=== PATIENT | female | born 1990 | race American Indian/Alaskan Native ===

== ENCOUNTER 2017-06-03 00:35 | Inpatient (IN) | payer OTHER ==
[2017-06-03] MEDS ORDERED: LACTATED RINGERS 1,000 ML ONE (01:52)
[2017-06-03] MEDS ORDERED: PITOCin/NS 20 UNIT/1000ML DRIP 20,000 MILLIUNITS/1,000 ML BAG IV ONE (02:11)
[2017-06-03] MEDS ORDERED: XYLOCAINE 2% INFILTRATI ONE ×2 (02:13→02:21)
[2017-06-03] MEDS ORDERED: STADOL IV PRN (02:21)
[2017-06-03] MEDS ORDERED: BRETHINE SUB-Q PRN (02:21)
[2017-06-03] MEDS ORDERED: MINERAL OIL PO PRN (02:21)
[2017-06-03] MEDS ORDERED: BRETHINE IVP PRN (02:21)
[2017-06-03] MEDS ORDERED: ePHEDrine SULFATE IV PRN (02:21)
[2017-06-03] MEDS ORDERED: SUBLIMAZE IV PRN (02:21)
[2017-06-03] MEDS ORDERED: PHENERGAN PO PRN (02:27)
[2017-06-03] MEDS ORDERED: DULCOLAX PR PRN (02:27)
[2017-06-03] MEDS ORDERED: TUCKS PAD TP PRN (02:27)
[2017-06-03] MEDS ORDERED: BENADRYL PO PRN (02:27)
[2017-06-03] MEDS ORDERED: PHENERGAN PR PRN (02:27)
[2017-06-03] MEDS ORDERED: TYLENOL PO PRN (02:27)
[2017-06-03] MEDS ORDERED: LANSINOH TP PRN (02:27)
[2017-06-03] MEDS ORDERED: MILK OF MAGNESIA PO PRN (02:27)
[2017-06-03] MEDS ORDERED: ZOFRAN IV PRN (02:27)
--- NOTE | 2017-06-03 02:35 | History and Physical Report ---
History of Present Illness Date of examination: 06/03/17 Date of admission: 06/03/17 00:41 Chief complaint: Labor History of present illness: Pt is a 27yo BF EDC 05/30/17; EGA 40 4/7 weeks presents to L&D complaining of RUC's q 2-4 mins. She received care at [facility] since 14 weeks and course has been unremarkable. records are available and GBS is Negative. Past History Past Medical History: no pertinent history Past Surgical History: no surgical history [employer] History: abnormal PAP smear Family/Genetic History: none Social history: no significant social history, - Obstetrical History Expected Date of Delivery: 05/30/17 Actual Gestation: 40 Week(s) 4 Day(s) : 1 Medications and Allergies Allergies Allergy/AdvReac Type Severity Reaction Status Date / Time No Known Allergies Allergy Verified 06/03/17 01:42 Home Medications Medication Instructions Recorded Confirmed Last Taken Type No Known Home Medications [No 06/03/17 06/03/17 Unknown History Reported Home Medications] Active Meds: Active Medications Acetaminophen (Tylenol) 650 mg PO Q4H PRN PRN Reason: Pain MILD(1-3)/Fever >100.5/OLEARY Acetaminophen/Hydrocodone Bitart ([place] 5/325) 2 each PO Q6H PRN PRN Reason: Pain, Moderate (4-6) Bisacodyl (Dulcolax) 10 mg AR BID PRN PRN Reason: Constipation Butorphanol Tartrate (Stadol) 2 mg IV Q2H PRN PRN Reason: Pain , Severe (7-10) Diphenhydramine HCl (Benadryl) 25 mg PO Q6H PRN PRN Reason: Itching Diphtheria/Tetanus/Acell Pertussis (Boostrix) 0.5 ml IM .ONCE ONE Stop: 06/04/17 02:28 Ephedrine Sulfate (Ephedrine Sulfate) 10 mg IV Q2M PRN PRN Reason: Hypotension Fentanyl (Sublimaze) 100 mcg IV Q2H PRN PRN Reason: Labor Pain Ferrous Sulfate (Feosol) 325 mg PO BID MALLY Lactated Ringer's (Lactated Ringers) 1,000 mls @ 125 mls/hr IV DIRECT MALLY Oxytocin/Sodium Chloride (Pitocin/Ns 20 Unit/1000ml Drip) 20 units in 1,000 mls @ 125 mls/hr IV DIRECT MALLY Oxytocin/Sodium Chloride (Pitocin/Ns 30 Unit/500ml) 30 units in 500 mls @ 1 mls /hr IV TITR MALLY; 1 MILLIUNITS/MIN PRN Reason: Protocol Oxytocin/Sodium Chloride (Pitocin/Ns 20 Unit/1000ml Drip) 20 units in 1,000 mls @ 250 mls/hr IV DIRECT MALLY Ibuprofen (Motrin) 600 mg PO Q6H MALLY Lidocaine (Xylocaine 2%) 20 ml INFILTRATI ONCE ONE Stop: 06/03/17 02:22 Magnesium Hydroxide (Milk Of Magnesia) 30 ml PO HS PRN PRN Reason: Constipation Measles/Mumps/Rubella Vaccine Live (M-M-R Ii Vaccine) 0.5 ml SUB-Q .ONCE ONE Stop: 06/04/17 02:28 Mineral Oil (Mineral Oil) 30 ml PO QHS PRN PRN Reason: Constipation Multi-Ingredient Ointment (Lansinoh) 1 applic TP PRN PRN PRN Reason: Sore Nipples Multivitamins/Iron/Calcium ( Vitamin) 1 each PO QDAY MALLY Ondansetron HCl (Zofran) 4 mg IV Q8H PRN PRN Reason: Nausea And Vomiting Promethazine HCl (Phenergan) 25 mg AR Q6H PRN PRN Reason: Nausea And Vomiting Promethazine HCl (Phenergan) 25 mg PO Q6H PRN PRN Reason: Nausea And Vomiting Sodium Chloride (Sodium Chloride Flush Syringe 10 Ml) 10 ml IV PRN NR Terbutaline Sulfate (Brethine) 0.25 mg SUB-Q ONCE PRN PRN Reason: Hyperstimulation/Hypertonicity Terbutaline Sulfate (Brethine) 0.25 mg IVP ONCE PRN PRN Reason: Hyperstimulation/Hypertonicity Witch Stephanie/Glycerin (Tucks Pad) 1 each TP PRN PRN PRN Reason: Hemorrhoid/cleansing/soothing Review of Systems All systems: negative - Vital Signs Vital signs: Vital Signs Temp Pulse Resp BP 98.4 F 75 20 121/73 06/03/17 00:46 06/03/17 00:46 06/03/17 00:46 06/03/17 00:46 Temp Pulse Resp BP Pulse Ox 98.4 F 75 20 133/76 100 06/03/17 00:46 06/03/17 02:31 06/03/17 00:46 06/03/17 02:27 06/03/17 02:31 - Physical Exam Breasts: Positive: deferred Cardiovascular: Regular rate Lungs: Positive: Clear to auscultation Abdomen: Positive: normal appearance Genitourinary (Female): Positive: other (female circumcision) Vagina: Positive: normal moisture Uterus: Positive: enlarged Extremities: Positive: normal - Obstetrical FHR: category 1 Uterine Contraction Monitor Mode: External Cervical Dilatation: 5 Cervical Effacement Percentage: 100 station: 0 Uterine Contraction Pattern: Regular Uterine Tone Measurement Phase: Contraction Uterine Contraction Intensity: Strong/Firm Results All other labs normal. Assessment and Plan - Patient Problems (1) 40 weeks gestation of Onset Date: 06/03/17 Current Visit: Yes Status: Acute Plan to address problem: A: IUP @ 40 4/7 weeks in labor Meconium fluid P: Admit to L&D for expectant vaginal delivery
--- NOTE | 2017-06-03 02:39 | Procedure Note ---
OB Delivery Note - Delivery Date of Delivery: 06/03/17 Surgeon: ELIZABETH CLAYTON Estimated blood loss: 100cc - Vaginal Delivery presentation: vertex Delivery position: OA Intrapartum events: meconium Delivery induction: none Delivery augmentation: rupture of membranes Delivery monitor: external FHT, external uterine Route of delivery: Delivery placenta: spontaneous Episiotomy: none Delivery laceration: 1st degree (left labial and perineal) Delivery repair: vicryl Anesthesia: local Delivery comments: delivered OA and placed on Mom's chest for [id number] bonding and delayed cord clamping. RT in attendance. - Infant A at 1 minute: 8 at 5 minutes: 9 Gender: Male (3006gms)
[2017-06-03] MEDS ORDERED: PITOCin/NS 20 UNIT/1000ML DRIP 20 UNITS/1,000 ML BAG IV SCH ×2 (03:00)
[2017-06-03] MEDS ORDERED: SODIUM CHLORIDE FLUSH SYRINGE 10 ML IV PRN (03:00)
[2017-06-03] MEDS ORDERED: PITOCin/NS 30 UNIT/500ML 30 UNITS/500 ML BAG IV SCH (03:00)
[2017-06-03] MEDS ORDERED: LACTATED RINGERS 1,000 ML IV SCH (03:00)
[2017-06-03] MEDS: NORCO 5/325 PO PRN ×2 (03:03→15:16)
[2017-06-03 03:23] LABS: Hematocrit 35.6 % (30.3-42.9); Hemoglobin 12.1 gm/dl (10.1-14.3); Mean Corpuscular HGB Conc 34 % (30-34); Mean Corpuscular Hemoglobin 32 pg (28-32); Mean Corpuscular Volume 96 fl (79-97); Platelet Count 139 K/mm3 (140-440); Red Blood Count 3.73 M/mm3 (3.65-5.03)
[2017-06-03] MEDS: PRENATAL VITAMIN PO SCH ×2 (15:20→15:23)
[2017-06-03] MEDS: FEOSOL PO SCH ×2 (15:20→21:38)
[2017-06-03] MEDS: MOTRIN PO SCH (21:36)
[2017-06-04] MEDS ORDERED: M-M-R II VACCINE SUB-Q ONE (02:27)
[2017-06-04] MEDS: MOTRIN PO SCH ×4 (03:05→21:00)
[2017-06-04] MEDS ORDERED: BOOSTRIX IM ONE (06:00)
[2017-06-04] MEDS: FEOSOL PO SCH ×2 (10:37→22:00)
[2017-06-04] MEDS: PRENATAL VITAMIN PO SCH (10:38)
[2017-06-04] MEDS ORDERED: Fluarix Quad 2017-2018(36 MOS+ IM ONE (12:00)
--- NOTE | 2017-06-04 15:02 | Progress Note ---
Assessment and Plan PPD# 1 s/p -Doing well P: -Continue routine care -Anticipate discharge in 24-48 hours - Patient Problems (1) (normal spontaneous vaginal delivery) Current Visit: Yes Status: Acute Subjective - Subjective Date of service: 06/04/17 Principal diagnosis: PPD#1 Interval history: Patient seen and examined, stable doing well Patient reports: appetite normal, voiding normally, pain well controlled, ambulating normally, no dizzy ambulation, no nauseated [place]: doing well Objective - Vital Signs Latest vital signs: Vital Signs Temp Pulse Resp BP Pulse Ox 06/04/17 03:05 16 06/03/17 23:44 98.5 F 71 18 102/60 98 06/03/17 21:36 16 06/03/17 16:19 97.8 F 18 89/46 Intake and Output 06/03/17 06/04/17 06/04/17 23:59 07:59 15:59 Intake Total 362 480 Balance 362 480 Intake: Oral 360 480 Tube Feeding 2 Other: Total, Intake Amount 362 480 # Voids Void 3 - Exam Abdomen: Present: normal appearance, soft. Absent: distention, tenderness, guarding, rigidity Uterus: Present: firm, fundal height below umbilicus Extremities: Present: normal
--- NOTE | 2017-06-04 15:04 | Discharge Summary ---
Providers - Providers Date of Admission: 06/03/17 00:41 Date of discharge: 06/05/17 Attending physician: ELIZABETH CLAYTON Primary care physician: ELIZABETH CLAYTON Hospitalization Reason for admission: active labor, IUP at term Delivery: Episiotomy: none Laceration: 1st degree Other procedures: none complications: none Discharge diagnosis: IUP at term delivered [place] baby: male Hospital course: Uncomplicated hospital course Condition at discharge: Good Disposition: DC-01 TO HOME OR SELFCARE - Discharge Diagnoses (1) (normal spontaneous vaginal delivery) Status: Acute Plan - Provider Discharge Summary Activity: no sex for 6 weeks, no heavy lifting 4 weeks, no strenuous exercise Diet: routine Additional instructions: [] Smoking cessation referral if applicable(refer to patient education folder for contact #) [] Refer to [facility] Booklet Call your doctor immediately for: * Fever > 100.5 * Heavy vaginal bleeding ( >1 pad per hour) * Severe persistent headache * Shortness of breath * Reddened, hot, painful area to leg or breast * Drainage or odor from incision. * Keep incision clean and dry at all times and follow doctor's instructions regarding bathing/showering - Follow up plan Follow up: ELIZABETH CLAYTON MD [Primary Care Provider] - 6 Weeks
[2017-06-05] MEDS: MOTRIN PO SCH ×2 (03:00→15:16)
[2017-06-05 18:25] VITALS: BP 108/65
== END 2017-06-05 16:50 | disposition home or self-care (01) | DRG 775 ==
LOC: TRG 00:35 → LD 00:41 → OB 04:03
PROVIDERS: ADMIT Obstetrics & Gynecology; ATTEND Obstetrics & Gynecology
PROC: 10E0XZZ Delivery of Products of Conception, External Approach (ICD-10-PCS; principal; 2017-06-03)
PROC: 0HQ9XZZ Repair Perineum Skin, External Approach (ICD-10-PCS; 2017-06-03)
PROC: 3E0234Z Introduction of Serum, Toxoid and Vaccine into Muscle, Percutaneous Approach (ICD-10-PCS; 2017-06-04)
DX: O77.0 Labor and delivery complicated by meconium in amniotic fluid (principal); O70.0 First degree perineal laceration during delivery; Z3A.40 40 weeks gestation of pregnancy; Z37.0 Single live birth; Z23 Encounter for immunization
CPT/HCPCS: 36415; 85027; 86592; 86850; 86900; 86901; 90471; 90686; 90715; 99211; A6250; G0463; J2590; J7120

== ENCOUNTER 2017-07-11 14:58 | Emergency (ER) | payer MEDICAID, OTHER ==
[2017-07-11 15:52] LABS: Basophils % (Auto) 0.5 % (0.0-1.8); Eosinophils # (Auto) 0.2 K/mm3 (0.0-0.4); Hematocrit 36.6 % (30.3-42.9); Hemoglobin 12.2 gm/dl (10.1-14.3); Lymphocytes # (Auto) 2.4 K/mm3 (1.2-5.4); Lymphocytes % (Auto) 40.9 % (13.4-35.0); Mean Corpuscular HGB Conc 34 % (30-34); Mean Corpuscular Hemoglobin 32 pg (28-32); Mean Corpuscular Volume 96 fl (79-97); Monocytes # (Auto) 0.5 K/mm3 (0.0-0.8); Monocytes % (Auto) 8.4 % (0.0-7.3); Platelet Count 186 K/mm3 (140-440); Red Blood Count 3.82 M/mm3 (3.65-5.03); Red Cell Distribution Width 13.3 % (13.2-15.2)
[2017-07-11 16:02] LABS: BUN/Creatinine Ratio 15; Blood Urea Nitrogen 12 mg/dL (7-17); Calcium 8.8 mg/dL (8.4-10.2); Hemolysis Index 27
[2017-07-11 22:03] VITALS: BP 114/67
--- NOTE | 2017-07-11 22:44 | Emergency Department Report ---
HPI - General Chief Complaint: Vaginal Bleeding Time Seen by Provider: 07/11/17 21:41 - HPI HPI: The patient's 27-year-old female presents for evaluation of abdominal pain or vaginal bleeding. The patient reports 2 days of lower abdominal pain, crampy in quality, mild in severity, currently 2/10 in severity, exacerbated with movement, associated with heavy vaginal bleeding. She shares that her bleeding is heavier than typical menstrual periods and that this is her first period since vaginally delivering her child 2 months ago. The patient denies fever, chills, night sweats, diarrhea, blood in the stool, dark tarry stool, dysuria, hematuria, flank pain, genital discharge, inability to pass flatus. ED Past Medical Hx - Past Medical History Hx Hypertension: No Hx Congestive Heart Failure: No Hx Diabetes: No Hx Deep Vein Thrombosis: No Hx Renal Disease: No Hx Sickle Cell Disease: No Hx Seizures: No Hx Asthma: No Hx COPD: No Hx HIV: No - Social History Smoking Status: Never Smoker Substance Use Type: None - Medications Home Medications: Home Medications Medication Instructions Recorded Confirmed Last Taken Type Ibuprofen [Motrin 600 MG tab] 600 mg PO Q8H PRN #30 tablet 06/04/17 Unknown Rx Multivitamin with Iron 1 each PO DAILY #30 tablet 06/04/17 Unknown Rx [Multivitamins with Iron] HYDROcodone/APAP 5-325 [[place] 1 each PO Q6HR PRN #10 tablet 07/11/17 Unknown Rx 5/325] ED Review of Systems ROS: Stated complaint: HEMORRHAGE Other details as noted in HPI Constitutional: denies: fever ENT: denies: throat or neck pain Respiratory: denies: cough, shortness of breath Cardiovascular: denies: chest pain Endocrine: denies unexplained weight loss or gain Gastrointestinal: reoports abdominal pain, nausea Genitourinary: reports vaginal bleeding denies: dysuria Musculoskeletal: denies: leg swelling Skin: denies: rash Neurological: denies: headache Hematological/Lymphatic: denies: easy bleeding or easy bruising Psych: denies sadness or hopelessness Physical Exam - Physical Exam Vital Signs: Vital Signs 07/11/17 07/11/17 07/11/17 15:04 22:02 22:16 Temperature 98.2 F 98 F Pulse Rate 77 78 Respiratory 18 18 18 Rate Blood Pressure 111/66 Blood Pressure 114/67 [Left] O2 Sat by Pulse 99 100 Oximetry Physical Exam: General: well-nourished, well-developed, no acute distress Head: Normocephalic, atraumatic Eyes: normal sclera ENT: Mucous membranes are pink and moist Neck: trachea midline, neck supple, No neck stiffness, no cervical adenopathy Respiratory: Breath sounds equal bilaterally, no wheezing, rales, or rhonchi Cardio: S1 and S2 present, no murmurs, rubs, gallops, capillary refill is brisk Abdomen: Normoactive bowel sounds, soft abdomen, suprapubic tenderness to palpation, no rigidity, no guarding or rebound tenderness Chest WALL/Back: No tenderness to palpation of the chest wall, no CVA tenderness with percussion Musc: No pitting edema Skin: No rash Neuro: no facial drooping, normal speech Psych: Normal affect ED Course Vital Signs 07/11/17 07/11/17 07/11/17 15:04 22:02 22:16 Temperature 98.2 F 98 F Pulse Rate 77 78 Respiratory 18 18 18 Rate Blood Pressure 111/66 Blood Pressure 114/67 [Left] O2 Sat by Pulse 99 100 Oximetry ED Medical Decision Making - Lab Data Result diagrams: 07/11/17 15:25 07/11/17 15:25 - Medical Decision Making The patient was seen and examined by myself. The patient is placed on a cardiac cath lab radiology technologist and continuous pulse ox. On initial evaluation, the patient was found to be in no distress. Evaluation orders are placed. Lab results were non -concerning including WBC, hemoglobin, hematocrit, electrolytes, renal function , LFTs, lipase, negative test. The patient was reevaluated and reported that their symptoms were markedly improved. The patient was given a prescription for pain medicine. The patient is stable for discharge with outpatient follow-up. The patient is given follow-up and return instructions. The patient expressed understanding and agreed with the plan. The patient is discharged in stable condition. Critical care attestation.: If time is entered above; I have spent that time in minutes in the direct care of this critically ill patient, excluding procedure time. ED Disposition Clinical Impression: Abnormal vaginal bleeding, Acute suprapubic pain Menorrhagia Qualifiers: Menorrahagia type: with irregular cycle Qualified Code(s): N92.1 - Excessive and frequent menstruation with irregular cycle Disposition: - TO HOME OR SELFCARE Is pt being admited?: No Does the pt Need Aspirin: No Condition: Stable Instructions: Dysfunctional Uterine Bleeding (ED), Menorrhagia (ED) Referrals: KHRIS OBRIEN NP [Primary Care Provider] - 3-5 Days JESSICA CLAYTON [Patient Control Supervisor] - 3-5 Days [facility] [Provider Group] - 3-5 Days Time of Disposition: 22:19
== END 2017-07-11 22:45 | disposition home or self-care (01) ==
LOC: ED 14:58
DX: N93.9 Abnormal uterine and vaginal bleeding, unspecified (principal); N92.0 Excessive and frequent menstruation with regular cycle
CPT/HCPCS: 36415; 80048; 84703; 85025; 86850; 86900; 86901; 99283